=== PATIENT | female | born 1940 | race Two or more races ===

== ENCOUNTER 2022-06-13 12:10 | Inpatient (IN) | payer OTHER ==
[~2022-06-13] VITALS: Ht 152.4 cm; Wt 104.3 kg
--- NOTE | 2022-06-13 12:44 | NUR ---
SE RECIBE PTE ALERTA Y IORIENTADA X3 PTE REFIERE QUE FUE REFERIDA A SE POR RETENCION URINARIA SE MONITOREAN VITALES Y SE UBICA .
--- NOTE | 2022-06-13 13:41 | NUR ---
PACIENTE ALERTA Y ORIENTADA POR JOS. SE ORIENTA POR MIS SETH RN DE TRATA- MIENTO SANTI ORDEN MEDICA. REFIERE ENTENDER. ESTA LE REALIZA MUESTRAS CON MEDIDAS ASEPTICAS CORRESPONDIENTES. EN ESPERA DE MARIO X.
[2022-06-16] MEDS ORDERED: AZELASTINE137 MCG/0. (08:20)
[2022-06-16] MEDS ORDERED: MONTELUKAST SOD10 MG (08:20)
[2022-06-16] MEDS ORDERED: PIOGLITAZONE HC30 MG (08:21)
[2022-06-16] MEDS ORDERED: NIFEDIPINE ER60 M1 (08:21)
[2022-06-16] MEDS ORDERED: FARXIGA10 MG (08:21)
[2022-06-16] MEDS ORDERED: CARVEDILOL12.5 M1 (08:21)
[2022-06-16] MEDS ORDERED: ISOSORBIDE MONO60 M2 (08:21)
[2022-06-16] MEDS ORDERED: ATORVASTATIN CA40 MG (08:21)
[2022-06-16] MEDS ORDERED: GABAPENTIN300 M2 (08:21)
[2022-06-16] MEDS ORDERED: FUROSEMIDE20 MG (08:21)
[2022-06-16] MEDS ORDERED: LOSARTAN-HCTZ1 EAC1 (08:21)
[2022-06-16] MEDS ORDERED: ALLOPURINOL300 MG (08:21)
[2022-06-16] MEDS ORDERED: GLIMEPIRIDE4 M1 (08:21)
== END 2022-06-20 18:43 | disposition home or self-care (01) | DRG 690 ==
LOC: ER 12:10 → MEDI 19:13 → SEC-K 19:13 → MEDI 19:17
PROVIDERS: ADMIT Internal Medicine; ATTEND Internal Medicine
PROC: B246ZZZ Ultrasonography of Right and Left Heart (ICD-10-PCS; 2022-06-13)
PROC: 4A12X4Z Monitoring of Cardiac Electrical Activity, External Approach (ICD-10-PCS; 2022-06-13)
PROC: BW40ZZZ Ultrasonography of Abdomen (ICD-10-PCS; principal; 2022-06-14)
PROC: BB24ZZZ Computerized Tomography (CT Scan) of Bilateral Lungs (ICD-10-PCS; 2022-06-19)
DX: N39.0 Urinary tract infection, site not specified (principal); N04.9 Nephrotic syndrome with unspecified morphologic changes; I13.0 Hypertensive heart and chronic kidney disease with heart failure and stage 1 through stage 4 chronic kidney disease, or unspecified chronic kidney disease; B95.1 Streptococcus, group B, as the cause of diseases classified elsewhere; E11.22 Type 2 diabetes mellitus with diabetic chronic kidney disease; I50.9 Heart failure, unspecified; N18.9 Chronic kidney disease, unspecified; N28.1 Cyst of kidney, acquired; E78.49 Other hyperlipidemia; Z79.4 Long term (current) use of insulin; D63.8 Anemia in other chronic diseases classified elsewhere